=== PATIENT | male | born 1990 | race African-American/Black ===

== ENCOUNTER 2016-09-11 04:41 | Emergency (ER) | payer MEDICAID ==
[~2016-09-11] VITALS: Ht 167.6 cm; Wt 72.6 kg
[2016-09-11 07:35] VITALS: BP 115/75
[2016-09-11] MEDS ORDERED: cefTRIAXone SOD 1,000 MG VL IM ONE (08:15)
[2016-09-11] MEDS ORDERED: KETOROLAC TROMETH 60MG/2ML VIAL IM ONE (08:15)
[2016-09-11] MEDS ORDERED: LIDOCAINE 1% HCL (LOCAL ANESTH.) INJ 20ML MDV IJ ONE (08:15)
[2016-09-11] MEDS ORDERED: ETHYL CHLORIDE SPRAY TOP ONE (08:45)
== END 2016-09-11 09:17 | disposition home or self-care (01) ==
LOC: ER 04:44
DX: L02.213 Cutaneous abscess of chest wall (principal); L02.211 Cutaneous abscess of abdominal wall; F17.210 Nicotine dependence, cigarettes, uncomplicated
CPT/HCPCS: 10061; 96372; 99284; J0696; J1885; J2001

== ENCOUNTER 2016-09-13 09:34 | Emergency (ER) | payer BC, MEDICAID ==
[~2016-09-13] VITALS: Ht 182.9 cm; Wt 72.6 kg
[2016-09-13 09:53] VITALS: BP 114/73
== END 2016-09-13 11:18 | disposition home or self-care (01) ==
LOC: ER 09:34
DX: L02.211 Cutaneous abscess of abdominal wall (principal); Z48.01 Encounter for change or removal of surgical wound dressing; F17.210 Nicotine dependence, cigarettes, uncomplicated